=== PATIENT | female | born 1985 | race Caucasian/White ===

== ENCOUNTER 2024-02-25 06:27 | Day surgery (SDC) | payer OTHER, SELFPAY ==
[2024-02-25] VITALS (9 sets, daily range): BP systolic 96–123; BP diastolic 61–81; BMI 22.8; BMI 23.0
[2024-02-25] MEDS: NORMOSOL-R 1000 IV (08:46)
[2024-02-25] MEDS: VIBRAMYCIN 260 MG IV (09:07)
[2024-02-25 09:14] LABS: Hematocrit 38.9 % (37.0-47.0); Hemoglobin 13.7 g/dL (12.0-16.0)
[2024-02-25] MEDS: HYPERRHO S-D 1500 UNIT IM (12:34)
== END 2024-02-25 12:50 | disposition home or self-care (01) ==
LOC: SDS 06:27
PROVIDERS: ATTENDING PHYSICIAN Obstetrics & Gynecology
DX: O02.1 Missed abortion (principal)
CPT/HCPCS: 59820; 88305; 85014; 85018; 86850; 86900; 86901; J2790

== ENCOUNTER → 2024-11-07 13:43 | Outpatient (REF) | payer OTHER, SELFPAY | LOC: PNTC 13:43 | PROVIDERS: ATTENDING PHYSICIAN Obstetrics & Gynecology | DX: O09.529 Supervision of elderly multigravida, unspecified trimester (principal); O09.811 Supervision of pregnancy resulting from assisted reproductive technology, first trimester | CPT/HCPCS: 76801; 76813 ==

== ENCOUNTER → 2024-11-24 13:22 | Outpatient (REF) | payer OTHER, SELFPAY | LOC: PNTC 13:22 | PROVIDERS: ATTENDING PHYSICIAN Obstetrics & Gynecology | DX: O09.529 Supervision of elderly multigravida, unspecified trimester (principal); O09.819 Supervision of pregnancy resulting from assisted reproductive technology, unspecified trimester; O34.29 Maternal care due to uterine scar from other previous surgery | CPT/HCPCS: 76805; 93976 ==

== ENCOUNTER → 2024-12-27 09:48 | Outpatient (REF) | payer OTHER, SELFPAY | LOC: PNTC 09:48 | PROVIDERS: ATTENDING PHYSICIAN Obstetrics & Gynecology | DX: O09.529 Supervision of elderly multigravida, unspecified trimester (principal); O09.819 Supervision of pregnancy resulting from assisted reproductive technology, unspecified trimester; O34.219 Maternal care for unspecified type scar from previous cesarean delivery | CPT/HCPCS: 76811; 76817; 93976 ==

== ENCOUNTER → 2025-01-24 11:06 | Outpatient (REF) | payer OTHER, SELFPAY | LOC: PNTC 11:06 | PROVIDERS: ATTENDING PHYSICIAN Obstetrics & Gynecology | DX: O09.529 Supervision of elderly multigravida, unspecified trimester (principal); O09.819 Supervision of pregnancy resulting from assisted reproductive technology, unspecified trimester; O34.219 Maternal care for unspecified type scar from previous cesarean delivery | CPT/HCPCS: 76816 ==

== ENCOUNTER → 2025-02-21 11:05 | Outpatient (REF) | payer OTHER, SELFPAY | LOC: PNTC 11:05 | PROVIDERS: ATTENDING PHYSICIAN Obstetrics & Gynecology | DX: O09.529 Supervision of elderly multigravida, unspecified trimester (principal); O09.819 Supervision of pregnancy resulting from assisted reproductive technology, unspecified trimester; O34.211 Maternal care for low transverse scar from previous cesarean delivery; Z34.93 Encounter for supervision of normal pregnancy, unspecified, third trimester | CPT/HCPCS: 36415; 76816; 86850; 86900; 86901; 96372; J2790 ==

== ENCOUNTER → 2025-03-28 11:54 | Outpatient (REF) | payer OTHER, SELFPAY | LOC: PNTC 11:54 | PROVIDERS: ATTENDING PHYSICIAN Obstetrics & Gynecology | DX: O09.529 Supervision of elderly multigravida, unspecified trimester (principal); O09.819 Supervision of pregnancy resulting from assisted reproductive technology, unspecified trimester; O34.219 Maternal care for unspecified type scar from previous cesarean delivery | CPT/HCPCS: 76816 ==

== ENCOUNTER → 2025-04-11 13:18 | Outpatient (REF) | payer OTHER, SELFPAY | LOC: PNTC 13:18 | PROVIDERS: ATTENDING PHYSICIAN Obstetrics & Gynecology | DX: O09.529 Supervision of elderly multigravida, unspecified trimester (principal); O09.819 Supervision of pregnancy resulting from assisted reproductive technology, unspecified trimester | CPT/HCPCS: 59025; 76815 ==

== ENCOUNTER → 2025-04-18 14:08 | Outpatient (REF) | payer OTHER, SELFPAY | LOC: PNTC 14:08 | PROVIDERS: ATTENDING PHYSICIAN Obstetrics & Gynecology | DX: O09.529 Supervision of elderly multigravida, unspecified trimester (principal); O09.819 Supervision of pregnancy resulting from assisted reproductive technology, unspecified trimester | CPT/HCPCS: 76815 ==

== ENCOUNTER → 2025-04-25 13:27 | Outpatient (REF) | payer OTHER, SELFPAY | LOC: PNTC 13:27 | PROVIDERS: ATTENDING PHYSICIAN Obstetrics & Gynecology | DX: O09.529 Supervision of elderly multigravida, unspecified trimester (principal); O09.819 Supervision of pregnancy resulting from assisted reproductive technology, unspecified trimester | CPT/HCPCS: 59025; 76816 ==

== ENCOUNTER → 2025-05-02 13:32 | Outpatient (REF) | payer OTHER, SELFPAY | LOC: PNTC 13:32 | PROVIDERS: ATTENDING PHYSICIAN Obstetrics & Gynecology | DX: O09.819 Supervision of pregnancy resulting from assisted reproductive technology, unspecified trimester (principal); O09.529 Supervision of elderly multigravida, unspecified trimester | CPT/HCPCS: 59025; 76815 ==

== ENCOUNTER 2025-05-04 05:38 | Inpatient (IN) | payer OTHER, SELFPAY ==
[2025-05-04 05:47] VITALS: BMI 27.3
[2025-05-04 05:48] VITALS: BP 119/81
[2025-05-04 06:22] LABS: Hematocrit 36.5 % (37.0-47.0); Hemoglobin 12.5 g/dL (12.0-16.0); Mean Corp Hgb Conc. 34.2 g/dL (33.0-37.0); Mean Corpuscular Hgb 28.5 pg (27.0-31.0); Mean Corpuscular Volume 83.3 fL (81.0-99.0); Mean Platelet Volume 10.7 fL (7.4-10.4); Platelet Count 242 10^3/uL (130-400); Red Blood Cell Count 4.38 10^6/uL (4.20-5.40); Red Cell Dist. Width 14.6 % (11.5-14.5); White Blood Cell Count 9.5 10^3/uL (4.8-10.8)
[2025-05-04] MEDS: LR 1000 IV (07:00)
[2025-05-04] MEDS: BICITRA 30 ML PO (07:22)
[2025-05-04] MEDS: TYLENOL 1000 MG PO (07:31)
[2025-05-04] MEDS: ANCEF 10 IV (07:31)
--- NOTE | 2025-05-04 10:45 | W.PN.URO.CBU ---
Today's Communication / Plan
-
- Maintain martines catheter for 2 weeks post op
- Okay to switch to leg bag when comfortable
- Irrigate martines PRN for hematuria
- Outpatient cystogram in 2 weeks to rule out urine leak before martines removal
Assessment / Plan
-
40F with bladder wall adhesions to uterus found during
s/p repair of cystotomy 05/04
- Maintain martines catheter for 2 weeks post op
- Okay to switch to leg bag when comfortable
- Irrigate martines PRN for hematuria
- Outpatient cystogram in 2 weeks to rule out urine leak before martines removal
Diagnosis
-
Date of Service: May 04, 2025
-
Patient Diagnosis:
Bladder wall cystotomy
s/p bladder repair during 05/04
Subjective
-
n/a
Objective
-
Vital Signs
Temp Pulse Resp BP Pulse Ox
98.0 F 107 16 119/81 99
05/04/25 05:48 05/04/25 05:48 05/04/25 05:48 05/04/25 05:48 05/04/25 05:48
Laboratory Results
05/04/25 06:09
Physical Exam
-
post op
[2025-05-04] MEDS: TORADOL 15 MG IV ×2 (10:55→20:28)
[2025-05-04] MEDS: PITOCIN 30 UNITS/NSS 500 ML IV (10:55)
[2025-05-04] MEDS: FLUSH (NSS) 3 FLUSH IV (20:30)
[2025-05-05 06:27] LABS: Hematocrit 32.1 % (37.0-47.0); Hemoglobin 11.1 g/dL (12.0-16.0); Mean Corp Hgb Conc. 34.6 g/dL (33.0-37.0); Mean Corpuscular Hgb 29.1 pg (27.0-31.0); Mean Platelet Volume 10.7 fL (7.4-10.4); Platelet Count 217 10^3/uL (130-400); Red Blood Cell Count 3.82 10^6/uL (4.20-5.40); Red Cell Dist. Width 14.3 % (11.5-14.5); White Blood Cell Count 13.7 10^3/uL (4.8-10.8)
--- NOTE | 2025-05-05 07:29 | W.PN.ANS.POP ---
Anesthesia Post Operative
- Anesthesia Post Op Note
Vital Signs Stable-See Nursing Note: Yes
Airway Patent: Yes
Adequate Pain Control: Yes
Change in Mental Status: No
Current Postoperative Nausea & Vomiting: No
Anesthesia Complications: No
General Anesthetic Recall: No
Unplanned Admission: No
Post Op Hydration Adequate: Yes
[2025-05-05] MEDS: SENOKOT-S 1 TABLET PO (08:16)
[2025-05-05] MEDS: PRENATAL PLUS 1 TABLET PO (08:16)
[2025-05-05] MEDS: MYLICON 80 MG PO (08:17)
[2025-05-05] MEDS: TYLENOL 650 MG PO ×3 (08:17→21:30)
[2025-05-05] MEDS: MOTRIN 600 MG PO ×3 (08:17→21:30)
[2025-05-05 14:00] LABS: Syphilis/T. pallidum Ab Reflex Negative (Negative)
[2025-05-06] MEDS: MOTRIN 600 MG PO ×2 (03:33→09:47)
[2025-05-06] MEDS: TYLENOL 650 MG PO ×2 (03:34→09:47)
[2025-05-06] MEDS: PRENATAL PLUS 1 TABLET PO (08:03)
[2025-05-06] MEDS: SENOKOT-S 1 TABLET PO (08:04)
--- NOTE | 2025-05-06 12:42 | W.DS.TRANS ---
DC Summary - Broke Worker
-
Discharge Instructions:
Discharge Diagnosis/Procedures delivered via repeat section,
cystotomy
Diet No restrictions
Activity No strenuous activity
Driving Restrictions No driving for 2 weeks
Bathing Restrictions OK to Shower
Instructions:
Stand-Alone Forms: [facility] Delivery
Changes to Home Medications: No
Discharge Medications:
DC Medications w/original date entered in [facility]
prenat.vits,sona,myj-xvcy-harch 1 tab PO DAILY 05/04/25
acetaminophen 325 mg tablet 650 mg (2 x 325 mg) PO Q4HPRN PRN mild pain #1 tab 05/06/25
ibuprofen 600 mg tablet 600 mg PO Q6HPRN PRN cramps #60 tabs 05/06/25
Home Medication Changes
Pending Results: No
--- NOTE | 2025-05-06 12:42 | W.DCSUMMARY ---
Discharge Summary
Discharge Data
Date of Admission: 05/04/25
Date of Discharge: 05/06/25
-
Pending Results: No
Hospital Course
Patient is a 40yo who presented to Labor and Delivery at 39.1 weeks on 05/04 for scheduled repeat section. She has a history of 4 prior sections. She underwent repeat low transverse section on 05/04, delivering a viable
female infant. The procedure was complicated by dense fascial adhesions and a scarred lower uterine segment. There was an incidental cystotomy made during hysterotomy. Urology was called in and repaired the cystotomy. The QBL for the procedure was
1090mL. On postoperative day one, the patient was doing well with no concerns. The martines remained in place. Her hemoglobin was 11.1. On postop day 2, she was doing well and desired discharge home. She was tolerating a regular diet, ambulating,
passing flatus and had no heavy lochia. The martines remained in place draining clear urine. She was scheduled for follow up in 2 weeks with Urology and will have a cystogram prior to her appointment the evaluate the bladder. She was discharged home
with the martines in place. Discharge instructions and return precautions were reviewed and all questions answered prior to discharge. She was instructed to follow up in 2 weeks for an incision check.
Discharge Plan
-
Patient Disposition: Home (Routine Discharge)
Discharge Diagnosis/Procedures: delivered via repeat section, cystotomy
Condition: Good
Diet: No restrictions
Activity: No strenuous activity
Driving Restrictions: No driving for 2 weeks
Bathing Restrictions: OK to Shower
Stand Alone Forms: [facility] Delivery
Referrals:
Cali Corado MD [Active, Urology] - in two weeks
UNKNOWN - PT NOT,INTERVIEWE [Family Provider]
Flores Gorman MD [Active, Gynecology] - in two weeks
Prescriptions:
New
acetaminophen 325 mg Tablet
650 mg PO Q4HPRN PRN (Reason: mild pain) Qty: 1 0RF
ibuprofen 600 mg Tablet
600 mg PO Q6HPRN PRN (Reason: cramps) Qty: 60 0RF
Continued
prenat.vits,sona,uzo-jrmt-zxikz Tablet
1 tab PO DAILY
Discharge Orders:
Discharge Patient (As Directed); Ordered 05/06/25
Ordered By: Myriam Ortez
Discharge Date and Time
Discharge Date/Time: 05/06/25 11:22
Print Language: KOREAN
== END 2025-05-06 11:22 | disposition home or self-care (01) | DRG 787 ==
LOC: LDRP 05:38
PROVIDERS: Urology; ADMITTING PHYSICIAN Obstetrics & Gynecology
PROC: 0TNB0ZZ Release Bladder, Open Approach (ICD-10-PCS; 2025-05-04)
PROC: 0TQB0ZZ Repair Bladder, Open Approach (ICD-10-PCS; 2025-05-04)
PROC: 10D00Z1 Extraction of Products of Conception, Low, Open Approach (ICD-10-PCS; 2025-05-04)
DX: O34.211 Maternal care for low transverse scar from previous cesarean delivery (principal); N99.71 Accidental puncture and laceration of a genitourinary system organ or structure during a genitourinary system procedure; O71.5 Other obstetric injury to pelvic organs; Z3A.39 39 weeks gestation of pregnancy; Z37.0 Single live birth; O99.824 Streptococcus B carrier state complicating childbirth; N73.6 Female pelvic peritoneal adhesions (postinfective); N85.6 Intrauterine synechiae; R31.0 Gross hematuria; O99.892 Other specified diseases and conditions complicating childbirth; Y65.8 Other specified misadventures during surgical and medical care; Y92.234 Operating room of hospital as the place of occurrence of the external cause; O69.82X0 Labor and delivery complicated by other cord entanglement, without compression, not applicable or unspecified; Z98.82 Breast implant status; Z82.49 Family history of ischemic heart disease and other diseases of the circulatory system; Z91.018 Allergy to other foods; Z91.048 Other nonmedicinal substance allergy status; Z82.3 Family history of stroke
CPT/HCPCS: 85027; 86780; 86850; 86870; 86900; 86901

== ENCOUNTER → 2025-05-15 09:38 | Outpatient (REF) | payer OTHER, SELFPAY | LOC: RAD 09:38 | PROVIDERS: ATTENDING PHYSICIAN Urology | DX: N99.72 Accidental puncture and laceration of a genitourinary system organ or structure during other procedure (principal) | CPT/HCPCS: 51600; 74430; Q9967 ==